=== PATIENT | female | born 1975 | race Caucasian/White ===

== ENCOUNTER 2020-08-25 08:43 | Emergency (ER) | payer MEDICAID ==
[~2020-08-25] VITALS: Ht 160 cm; Wt 73.0 kg
[2020-08-25] MEDS ORDERED: TETANUS, DIPHTHERIA, PERTUSSIS VAC/PF 0.5ML (>7YR OLD) IM ONE (09:30)
[2020-08-25] MEDS ORDERED: LIDOCAINE HCL/EPINEPHRINE 1%-EPI 1:100,000 10 ML VIAL IJ SCH (09:45)
[2020-08-25] MEDS ORDERED: LIDOCAINE HCL/EPINEPHRINE 1%-EPI 1:100,000 20 ML VIAL INFIL ONE (09:45)
[2020-08-25 11:02] VITALS: BP 135/88
== END 2020-08-25 11:05 | disposition home or self-care (01) ==
LOC: ER 09:00
DX: S01.511A Laceration without foreign body of lip, initial encounter (principal); Z88.6 Allergy status to analgesic agent; Z88.2 Allergy status to sulfonamides; Y04.1XXA Assault by human bite, initial encounter; Y04.0XXA Assault by unarmed brawl or fight, initial encounter; Y07.03 Male partner, perpetrator of maltreatment and neglect; Y93.89 Activity, other specified; Y92.488 Other paved roadways as the place of occurrence of the external cause
CPT/HCPCS: 12013; 90471; 90715; 99283; J3490; Z7610

== ENCOUNTER 2020-08-30 13:12 | Emergency (ER) | payer MEDICAID ==
[~2020-08-30] VITALS: Ht 160 cm; Wt 72.0 kg
[2020-08-30 14:21] VITALS: BP 132/78
== END 2020-08-30 14:21 | disposition home or self-care (01) ==
LOC: ER 13:48
DX: Z48.02 Encounter for removal of sutures (principal); Z88.6 Allergy status to analgesic agent; Z88.2 Allergy status to sulfonamides
CPT/HCPCS: 99281